=== PATIENT | male | born 1970 | race Asian ===

== ENCOUNTER → 2017-01-21 | Outpatient (CLI) | payer OTHER | LOC: CIMAGING 07:56 | PROVIDERS: ATTEND Internal Medicine | DX: K76.0 Fatty (change of) liver, not elsewhere classified (principal); B18.1 Chronic viral hepatitis B without delta-agent | CPT/HCPCS: 76705-PO ==

== ENCOUNTER → 2018-08-07 | Outpatient (CLI) | payer OTHER | LOC: FIMAGING 07:18 | PROVIDERS: ATTEND Internal Medicine | DX: B18.1 Chronic viral hepatitis B without delta-agent (principal) ==